=== PATIENT | male | born 1990 | race Caucasian/White ===

== ENCOUNTER 2016-08-28 01:42 | Emergency (ER) | payer MEDICAID ==
[~2016-08-28] VITALS: Ht 167.6 cm; Wt 126.6 kg
[2016-08-28] MEDS ORDERED: MORPHINE SULFATE 4 MG/ML, 1ML IVPush PRN (03:00)
[2016-08-28] MEDS ORDERED: KETOROLAC 30 MG/1 ML IVPush ONE (03:00)
[2016-08-28] MEDS ORDERED: SODIUM CHLORIDE 0.9% 1,000ML IVBOLUS ONE (03:00)
[2016-08-28] MEDS ORDERED: METOCLOPRAMIDE 5 MG/ML, 2ML IVPush ONE (03:00)
[2016-08-28] MEDS ORDERED: MORPHINE SULFATE 4 MG/ML, 1ML ONE (03:16)
[2016-08-28] MEDS ORDERED: KETOROLAC 30 MG/1 ML ONE ×2 (03:16→03:36)
[2016-08-28] MEDS ORDERED: METOCLOPRAMIDE 5 MG/ML, 2ML ONE ×2 (03:16→03:36)
[2016-08-28 05:12] VITALS: BP 108/62
== END 2016-08-28 05:15 | disposition home or self-care (01) ==
LOC: ED 05:13
DX: G43.019 Migraine without aura, intractable, without status migrainosus (principal); Z88.0 Allergy status to penicillin; Z88.6 Allergy status to analgesic agent; Z88.8 Allergy status to other drugs, medicaments and biological substances
CPT/HCPCS: 93005; 96374; 96375; 99284; J1885; J2765; J7030